=== PATIENT | female | born 1980 | race Two or more races ===

== ENCOUNTER 2024-10-29 19:13 | Emergency (ER) | payer MEDICAID ==
[~2024-10-29] VITALS: Ht 162.6 cm; Wt 74.8 kg
[2024-10-29] MEDS ORDERED: IBUPROFEN 400 MG TABLET ONE (22:26)
[2024-10-29] MEDS: IBUPROFEN 400 MG TABLET PO ONE (22:28)
[2024-10-29 22:46] VITALS: BP 136/79; TEMP 98.4; O2SAT 98
== END 2024-10-29 22:46 | disposition home or self-care (01) ==
LOC: ER 19:21
DX: S23.41XA Sprain of ribs, initial encounter (principal); S40.012A Contusion of left shoulder, initial encounter; I10 Essential (primary) hypertension; E11.9 Type 2 diabetes mellitus without complications; V43.02XA Car driver injured in collision with other type car in nontraffic accident, initial encounter; Y93.89 Activity, other specified; Y92.415 Exit ramp or entrance ramp of street or highway as the place of occurrence of the external cause; Y99.8 Other external cause status
CPT/HCPCS: 71100-TC; 73030-TC